=== PATIENT | male | born 1990 | race Caucasian/White ===

== ENCOUNTER 2024-07-17 21:16 | Emergency (ER) | payer OTHER ==
[~2024-07-17] VITALS: Ht 190.5 cm; Wt 116.8 kg
[~2024-07-17 21:16] MED LIST: ANUSOL-HC SUPPO25 MG RC
[2024-07-17] MEDS ORDERED: Acetaminophen 325 MG TAB PO ONE (21:30)
[2024-07-17] MEDS ORDERED: Ibuprofen 400 MG TAB PO ONE (21:30)
[2024-07-17 22:11] VITALS: BP 131/75; PULSE 79; TEMP 98.2
== END 2024-07-17 22:11 | disposition home or self-care (01) ==
LOC: COL.ER 21:16
DX: M79.644 Pain in right finger(s) (principal)